=== PATIENT | male | born 1935 | race Caucasian/White ===

== ENCOUNTER 2023-01-12 20:59 | Observation (INO) ==
[2023-01-12] MEDS ORDERED: cefTRIAXone 1 gm/50 mL D5W 1 GM/50 ML BAG IV ONE (21:27)
[2023-01-12 21:49] LABS: Hematocrit 46 % (42-52); Hemoglobin 14.7 g/dL (14.0-18.0); Mean Corpuscular HGB Conc 32 g/dL (31-36); Mean Corpuscular Hemoglobin 28 pg (27-31); Mean Corpuscular Volume 88 fL (80-94); Mean Platelet Volume 8.4 fL (7.4-10.4); Platelet Count 260 10^3/uL (150-450); Red Blood Count 5.22 10^6 /uL (4.18-5.48); Red Cell Distribution Width 33 % (10-15); White Blood Count 9.5 10^3/uL (3.5-10.8)
[2023-01-12 21:59] LABS: Activated Partial Thrombo Time 34.5 seconds (26.0-38.0); INR 1.57 (0.88-1.18)
[2023-01-12 22:20] LABS: Albumin 3.8 g/dL (3.2-5.2); Calcium 8.4 mg/dL (8.6-10.3); Creatinine, Serum 1.12 mg/dL (0.67-1.17); Potassium 4.3 mmol/L (3.5-5.0); Total Protein 6.9 g/dL (6.4-8.9); eGFR CKD-EPI 63.6 (>60)
[2023-01-12 22:21] LABS: Albumin/Globulin Ratio 1.2 (1-3); Globulin 3.1 g/dL (2-4); Total Bilirubin 1.2 mg/dL (0.2-1.0)
[2023-01-12 22:24] LABS: ABS Basophils 0.1 10^3/ul (0-0.2); ABS Lymphocytes 0.6 10^3/ul (1.0-4.8); ABS Monocytes 0.7 10^3/ul (0-0.8); Eosinophil % 0.1 %; Lymphocyte % 6.2 %; Nucleated Red Blood Cells % 0.1
[2023-01-12 22:59] LABS: High Sensitivity Troponin 1 Hr 27 pg/mL (<20)
[2023-01-12] MEDS ORDERED: NS 0.9% 1000 ml BAG 2,000 ML IV ONE (23:07)
[2023-01-12 23:11] LABS: Urine Appearance Cloudy; Urine Bilirubin Negative (Negative); Urine Blood 3+ (Negative); Urine Color Yellow; Urine Glucose Negative (Negative); Urine Ketones Trace (Negative); Urine Nitrite Negative (Negative); Urine Protein 2+(100 mg/dL) (Negative); Urine Specific Gravity 1.018 (1.002-1.030); Urine Urobilinogen Negative (Negative)
[2023-01-12 23:29] LABS: Urine Bacteria Absent (Absent); Urine Red Blood Cell 3+(>10/hpf) (Absent); Urine White Blood Cell 3+(>20/hpf) (Absent)
[2023-01-13] MEDS ORDERED: Enoxaparin 40 MG/0.4 ML SYR SUBCUT SCH (01:00)
[2023-01-13 06:52] LABS: Hematocrit 43 % (42-52); Hemoglobin 13.9 g/dL (14.0-18.0); Mean Corpuscular HGB Conc 32 g/dL (31-36); Mean Corpuscular Hemoglobin 29 pg (27-31); Mean Corpuscular Volume 89 fL (80-94); Mean Platelet Volume 7.7 fL (7.4-10.4); Platelet Count 233 10^3/uL (150-450); Red Blood Count 4.84 10^6 /uL (4.18-5.48); Red Cell Distribution Width 33 % (10-15); White Blood Count 8.7 10^3/uL (3.5-10.8)
[2023-01-13 07:23] LABS: ABS Basophils 0.1 10^3/ul (0-0.2); ABS Lymphocytes 1.1 10^3/ul (1.0-4.8); ABS Monocytes 0.8 10^3/ul (0-0.8); ABS Neutrophils 6.6 10^3/ul (1.5-7.7); Calcium 7.6 mg/dL (8.6-10.3); Creatinine, Serum 0.91 mg/dL (0.67-1.17); Eosinophil % 0.5 %; Lymphocyte % 12.8 %; Potassium 3.8 mmol/L (3.5-5.0); eGFR CKD-EPI 81.6 (>60)
[2023-01-13 07:24] LABS: Anisocytosis 2+; Polychromasia 1+
[2023-01-13 07:51] LABS: Magnesium 1.9 mg/dL (1.9-2.7)
[2023-01-13] MEDS: Aspirin EC 81 mg TAB.EC (enteric coated) PO SCH (09:18)
[2023-01-13] MEDS: Memantine XR 14 mg CAP PO SCH (09:29)
[2023-01-13] MEDS ORDERED: cefTRIAXone 1 gm/50 mL D5W 1 GM/50 ML BAG IV SCH (21:00)
[2023-01-13] MEDS: Enoxaparin 40 MG/0.4 ML SYR SUBCUT SCH (22:22)
[2023-01-14 07:39] LABS: Hematocrit 43 % (42-52); Hemoglobin 13.6 g/dL (14.0-18.0); Mean Corpuscular HGB Conc 32 g/dL (31-36); Mean Corpuscular Hemoglobin 28 pg (27-31); Mean Corpuscular Volume 90 fL (80-94); Mean Platelet Volume 8.1 fL (7.4-10.4); Platelet Count 231 10^3/uL (150-450); Red Blood Count 4.81 10^6 /uL (4.18-5.48); Red Cell Distribution Width 33 % (10-15); White Blood Count 8.7 10^3/uL (3.5-10.8)
[2023-01-14 07:53] LABS: Calcium 7.6 mg/dL (8.6-10.3); Creatinine, Serum 0.82 mg/dL (0.67-1.17); Magnesium 1.8 mg/dL (1.9-2.7); Potassium 3.9 mmol/L (3.5-5.0)
[2023-01-14 08:21] LABS: Polychromasia 1+
[2023-01-14 08:22] LABS: ABS Basophils 0.1 10^3/ul (0-0.2); ABS Lymphocytes 1.5 10^3/ul (1.0-4.8); ABS Monocytes 0.9 10^3/ul (0-0.8); ABS Neutrophils 6.1 10^3/ul (1.5-7.7); Anisocytosis 2+; Eosinophil % 0.6 %; Lymphocyte % 17.6 %
[2023-01-14] MEDS: Aspirin EC 81 mg TAB.EC (enteric coated) PO SCH (08:23)
[2023-01-14] MEDS: Memantine XR 14 mg CAP PO SCH (08:24)
[2023-01-14] MEDS ORDERED: Magnesium Sulfate 2 gm BAG 2 GM/50 ML BAG IVPB ONE (08:45)
[2023-01-14] MEDS ORDERED: Cefepime 1 GM in Dextrose 1 GM/50 ML BAG IV SCH (11:00)
[2023-01-14] MEDS: Cefepime 1 GM in Dextrose 1 GM/50 ML BAG IV SCH ×2 (12:34→22:23)
[2023-01-14] MEDS ORDERED: Polyethylene Glycol 3350 17 GM PACKET PO PRN (12:51)
[2023-01-14] MEDS ORDERED: Psyllium PAK PO PRN (12:52)
[2023-01-14] MEDS ORDERED: Senna TAB 8.6 mg TAB PO PRN (12:52)
[2023-01-14] MEDS: Enoxaparin 40 MG/0.4 ML SYR SUBCUT SCH (22:21)
[2023-01-15 06:26] LABS: Hematocrit 45 % (42-52); Hemoglobin 14.5 g/dL (14.0-18.0); Mean Corpuscular HGB Conc 32 g/dL (31-36); Mean Corpuscular Hemoglobin 29 pg (27-31); Mean Corpuscular Volume 90 fL (80-94); Mean Platelet Volume 8.3 fL (7.4-10.4); Platelet Count 256 10^3/uL (150-450); Red Blood Count 4.99 10^6 /uL (4.18-5.48); Red Cell Distribution Width 32 % (10-15); White Blood Count 9.5 10^3/uL (3.5-10.8)
[2023-01-15 06:37] LABS: ABS Basophils 0.1 10^3/ul (0-0.2); ABS Eosinophils 0.1 10^3/ul (0-0.6); ABS Lymphocytes 1.3 10^3/ul (1.0-4.8); ABS Monocytes 0.9 10^3/ul (0-0.8); ABS Neutrophils 7.1 10^3/ul (1.5-7.7); Eosinophil % 0.6 %
[2023-01-15 06:47] LABS: Calcium 7.6 mg/dL (8.6-10.3); Creatinine, Serum 0.84 mg/dL (0.67-1.17); Magnesium 2.1 mg/dL (1.9-2.7); Potassium 4.3 mmol/L (3.5-5.0); eGFR CKD-EPI 84.4 (>60)
[2023-01-15] MEDS: Aspirin EC 81 mg TAB.EC (enteric coated) PO SCH (09:55)
[2023-01-15] MEDS: Memantine XR 14 mg CAP PO SCH (09:56)
[2023-01-15] MEDS: Cefepime 1 GM in Dextrose 1 GM/50 ML BAG IV SCH (11:12)
[2023-01-15 11:46] VITALS: BP 133/66
== END 2023-01-15 14:15 | disposition home or self-care (01) ==
LOC: ED 20:59 → EDHOLD 20:59 → SUATTDRO 01-13 00:43 → MED 01-13 01:29
PROVIDERS: ADMIT Hospitalist; ATTEND Internal Medicine